=== PATIENT | female | born 1935 | race Caucasian/White ===

== ENCOUNTER 2016-09-09 14:12 | Inpatient (IN) | payer OTHER, MEDICARE ==
[~2016-09-09] VITALS: Ht 177.8 cm; Wt 155.2 kg
[~2016-09-09 14:12] MED LIST: ADVAIR 100/501 DISK IH; ADVAIR 250/501 DISK IH; ADVAIR HFA120 INHAL1 IH; ADVAIR HFA120 INHALA IH; AMLODIPINE BESYL5 MG PO; ASPIRIN81 M2 PO; BACTRIM,SEPT1 TABLET PO; BRILINTA90 MG PO; CATAPRES0.1 MG PO; CEFADROXIL1 GM PO; CHILD ASPIRIN81 M1 PO; CLONIDINE HCL0.1 MG PO; CLONIDINE HCL0.3 MG PO; DAILY VALUE1 EACH PO; ELAVIL25 MG PO; FUROSEMIDE40 MG PO; GLIPIZIDE5 MG PO; GLUCOTROL5 MG PO; HUMALOG100 UNIT/1 SC; HUMULIN N100 UNITS/ SC; HUMULIN R100 UNITS/ SC; HYDROCHLOROTHIA25 MG PO; IMDUR60 MG PO; INCRUSE ELLI62.5 MCG IH; ISOSORBIDE MONO60 MG PO; JANUVIA100 MG PO; JANUVIA25 M1 PO; KETOCONAZOLE60 GM TP; KLOR-CON 88 MEQ PO; LANTUS 3 M100 UNITS1 SC; LASIX20 MG PO; LASIX40 MG PO; LEVOTHYROXINE50 MCG PO; LISINOPRIL10 MG PO; LOPRESSOR100 M1 PO; LOSARTAN POTAS100 MG PO; LUNESTA1 MG PO; MUCINEX1200 MG PO; NITROGLYCERIN0.4 MG SL; NOVOLIN N100 UNITS/ SC; NOVOLOG 10100 UNITS/ SC; NOVOLOG PE100 UNITS/ SC; PEN-VEE K,VEET500 MG PO; PERCOCET 5/31 TABLET PO; PRAVACHOL40 MG PO; PRAVASTATIN SOD40 MG PO; PRAVASTATIN SOD80 MG PO; PREDNISONE10 MG PO; PROVENTIL,2.5 MG/3 M IH; REQUIP3 MG PO; SANTYL30 GM TP; SILVADENE20 GM TP; SPIRIVA RESPIMAT4 GM IH; SPIRIVA1 INHALATI IH; ST. JOSEPH ASPI81 MG PO; SYNTHROID50 MCG PO; TRAMADOL HCL50 MG PO; TYLENOL ARTHRI650 MG PO; TYLENOL REGULA325 MG PO; VANCOMYCIN HCL1 GM IV; VENTOLIN HFA18 GM IH; VESICARE10 MG PO; VITAMIN B-6100 MG PO; XANAX0.25 MG PO; ZITHROMAX500 MG PO
[2016-09-09 15:04] LABS: HEMATOCRIT 38.4 % (36.0-46.0); MCH 32.1 PG (29.0-34.0); MCHC 32.6 G/DL (30.0-36.0); MCV 98.5 FL (83-99); MEAN PLAT.VOLUME 10.5 uM^3 (9.5-12.4); PLATELET COUNT 137 K/uL (156-360); RBC DIS.WIDTH-CV 12.6 % (11.8-14.6); RBC DIS.WIDTH-SD 45.4 % (39-53); WHITE BLOOD COUNT 9.1 K/uL (4.1-10.2)
[2016-09-09 15:12] LABS: CHLORIDE 100 mEq/L (99-109); POTASSIUM 4.7 mEq/L (3.7-5.4); SODIUM 136 mEq/L (136-147)
[2016-09-09 15:14] LABS: GLUCOSE 377 mg/dL (70-99)
[2016-09-09 15:15] LABS: ANION GAP 12 MEQ/L (2-14)
[2016-09-09 15:18] LABS: GFR ESTIMATE (CALCULATED) 51 mL/min/
[2016-09-09 15:19] LABS: UREA NITROGEN (BUN) 24 mg/dL (9-23)
[2016-09-09 15:25] LABS: TROP-I INTERPRETATION NEGATIVE; TROPONIN-I 0.05 ng/mL (0.0-0.30)
[2016-09-09] MEDS ORDERED: DUONEB 2.5-0.5 M3 ML AEROSOL (16:43)
[2016-09-09] MEDS ORDERED: PRAVACHOL40 MG PO (16:43)
[2016-09-09] MEDS ORDERED: LO-DOSE ASPIRIN81 M2 PO (16:47)
[2016-09-09] MEDS ORDERED: KLOR-CON 88 MEQ PO (16:48)
[2016-09-09] MEDS ORDERED: ADVAIR 250/501 DISK IH (16:49)
[2016-09-09] MEDS ORDERED: FUROSEMIDE40 MG PO (16:49)
[2016-09-09] MEDS ORDERED: HUMULIN N100 UNITS/ SC ×2 (16:50→16:51)
[2016-09-09] MEDS ORDERED: HUMALOG100 UNIT/1 SC (16:50)
[2016-09-09] MEDS ORDERED: SYNTHROID50 MCG PO (16:51)
[2016-09-09] MEDS ORDERED: VITAMIN B-6100 MG PO (16:52)
[2016-09-09] MEDS ORDERED: AMLODIPINE BESYL5 MG PO (16:53)
[2016-09-09] MEDS ORDERED: CLOPIDOGREL75 MG PO (16:53)
[2016-09-09 18:16] LABS: ADD MIUA? YES; BILIRUBIN NEGATIVE; BLOOD SMALL; COLOR YELLOW ((YELLOW)); GLUCOSE (STRIP) >=500; KETONES 20; LEUKOCYTES TRACE; NITRITE NEGATIVE; PROTEIN (STRIP) 100; SPECIFIC GRAVITY 1.028 (1.000-1.030); UROBILINOGEN 0.2 MG/DL (0.2-1.0)
[2016-09-09 18:30] LABS: TROP-I INTERPRETATION NEGATIVE; TROPONIN-I 0.22 ng/mL (0.0-0.30)
[2016-09-09 18:42] LABS: BACTERIA 2+ /HPF; CASTS PRESENT /LPF; CRYSTALS NONE SEEN; EPITHELIAL CELLS 2+ /HPF; FINE GRANULAR CASTS RARE /LPF; HYALINE CASTS 0-5 /LPF; MUCUS RARE /LPF; RED BLOOD CELLS 0-5 /HPF (0-5); UCUL ADDED? NO; WHITE BLOOD CELLS 0-5 /HPF (0-5)
[2016-09-09 19:40] VITALS: BP 158/72
[2016-09-09 19:43] VITALS: BP 158/72
[2016-09-09 22:50] LABS: POINT-OF-CARE METER ID UU13113831
[2016-09-09 23:05] LABS: METH RESISTANT S AUREUS PCR POSITIVE (NEGATIVE)
[2016-09-09 23:07] LABS: PROBE CHECK PASS
[2016-09-10] VITALS (8 sets, daily range): BP systolic 122–198; BP diastolic 62–81
[2016-09-10 01:06] LABS: TROPONIN-I 0.64 ng/mL (0.0-0.30)
[2016-09-10 01:07] LABS: TROP-I INTERPRETATION POSITIVE
[2016-09-10 02:05] LABS: INTER. NORMALIZED RATIO 1.1; PROTHROMBIN TIME 11.3 (9.2-11.2); PTT 29.4 (25-32)
[2016-09-10 02:10] LABS: BASE EXCESS 4.5 mEq/L (-3 to +3); BICARBONATE 29.8 mEq/L (22-26); CARBOXY HGB 1.8 % (0-5); COMMENTS - BLOOD GASES C+; DEVICE NC; METHEMOGLOBIN 1.4 % (0-1.5); O2 FLOW 5 L/MIN; PCO2 46 mm Hg (35-45); PO2 74 mm Hg (80-100); SITE LR; TOTAL RESP RATE 28 resp/min; pH 7.42 (7.35-7.45)
[2016-09-10 03:41] LABS: EOSINOPHIL (%) 0 % (0-5); HEMATOCRIT 41.7 % (36.0-46.0); IMMATURE GRANULOCYTE (%) 0.8 % (0.0-0.7); IMMATURE GRANULOCYTE COUNT 0.1 K/uL; INSTRUMENT ABS NEUTROPHIL CT 6.1 K/uL; LYMPHOCYTE COUNT 0.2 K/uL (1.0-2.8); MCH 32.3 PG (29.0-34.0); MCHC 33.3 G/DL (30.0-36.0); MEAN PLAT.VOLUME 10.6 uM^3 (9.5-12.4); MONOCYTE (%) 4.8 % (3-12); MONOCYTE COUNT 0.3 K/uL (0-0.8); NEUTROPHIL (%) 90.9 % (45-76); NEUTROPHIL COUNT 6.1 K/uL (1.8-6.4); PLATELET COUNT 151 K/uL (156-360); RBC DIS.WIDTH-CV 12.6 % (11.8-14.6); WHITE BLOOD COUNT 6.7 K/uL (4.1-10.2)
[2016-09-10 03:47] LABS: CHLORIDE 97 mEq/L (99-109); POTASSIUM 3.9 mEq/L (3.7-5.4); SODIUM 136 mEq/L (136-147)
[2016-09-10 03:48] LABS: MAGNESIUM 1.8 mg/dL (1.3-2.7)
[2016-09-10 03:51] LABS: ANION GAP 11 MEQ/L (2-14); TOTAL BILIRUBIN 1.1 mg/dL (0.0-1.0)
[2016-09-10 03:53] LABS: ALKALINE PHOSPHATASE 86 IU/L (3-129); GFR ESTIMATE (CALCULATED) 42 mL/min/
[2016-09-10 03:54] LABS: UREA NITROGEN (BUN) 27 mg/dL (9-23)
[2016-09-10 04:00] LABS: GLUCOSE 404 mg/dL (70-99)
[2016-09-10 05:38] LABS: ERTH.SED.RATE 85 MM/HR (0-30)
[2016-09-10 05:56] LABS: MCH 32.7 PG (29.0-34.0); MCHC 33.4 G/DL (30.0-36.0); MCV 97.9 FL (83-99); MEAN PLAT.VOLUME 10.9 uM^3 (9.5-12.4); PLATELET COUNT 136 K/uL (156-360); RBC DIS.WIDTH-CV 12.8 % (11.8-14.6); RBC DIS.WIDTH-SD 45.6 % (39-53); RED BLOOD COUNT 3.88 M/uL (3.80-5.20)
[2016-09-10 06:18] LABS: TROP-I INTERPRETATION POSITIVE; TROPONIN-I 0.69 ng/mL (0.0-0.30)
[2016-09-10 06:49] LABS: ANION GAP 10 MEQ/L (2-14); CHLORIDE 96 MEQ/L (99-109); GFR ESTIMATE (CALCULATED) 46 mL/min/; GLUCOSE 374 mg/dL (70-99); POTASSIUM 3.7 MEQ/L (3.7-5.4); SAMPLE HEMOLYSIS CHECK 0; SAMPLE ICTERIC CHECK 0; SAMPLE LIPEMIA CHECK 0; SODIUM 136 MEQ/L (136-147); UREA NITROGEN (BUN) 26 mg/dL (9-23)
[2016-09-10 07:37] LABS: POINT-OF-CARE METER ID UU14174216
[2016-09-10 11:50] LABS: POINT-OF-CARE METER ID UU14174216
[2016-09-10 13:27] LABS: TROP-I INTERPRETATION POSITIVE; TROPONIN-I 0.83 ng/mL (0.0-0.30)
[2016-09-10 15:50] LABS: POINT-OF-CARE METER ID UU14174216
[2016-09-10 21:23] LABS: POINT-OF-CARE METER ID UU13113781
[2016-09-11 07:53] LABS: POINT-OF-CARE METER ID UU13113698
[2016-09-11 08:53] VITALS: BP 140/76
[2016-09-11 12:31] LABS: POINT-OF-CARE METER ID UU13113698
[2016-09-11 16:00] VITALS: BP 144/77
[2016-09-11 16:18] LABS: POINT-OF-CARE METER ID UU13113781
[2016-09-11 21:01] LABS: POINT-OF-CARE METER ID UU13113781
[2016-09-11 21:40] VITALS: BP 172/84
[2016-09-12 01:26] VITALS: BP 155/66
[2016-09-12 04:54] VITALS: BP 173/80
[2016-09-12 05:43] LABS: HEMATOCRIT 35.4 % (36.0-46.0); MCH 32.9 PG (29.0-34.0); MCHC 33.1 G/DL (30.0-36.0); MCV 99.4 FL (83-99); MEAN PLAT.VOLUME 10.7 uM^3 (9.5-12.4); PLATELET COUNT 160 K/uL (156-360); RBC DIS.WIDTH-CV 12.8 % (11.8-14.6); RBC DIS.WIDTH-SD 46.4 % (39-53); RED BLOOD COUNT 3.56 M/uL (3.80-5.20); WHITE BLOOD COUNT 6.2 K/uL (4.1-10.2)
[2016-09-12 06:24] LABS: ANION GAP 8 MEQ/L (2-14); CHLORIDE 100 MEQ/L (99-109); GFR ESTIMATE (CALCULATED) 51 mL/min/; GLUCOSE 187 mg/dL (70-99); POTASSIUM 4.3 MEQ/L (3.7-5.4); SAMPLE HEMOLYSIS CHECK 0; SAMPLE ICTERIC CHECK 0; SAMPLE LIPEMIA CHECK 0; SODIUM 137 MEQ/L (136-147); UREA NITROGEN (BUN) 36 mg/dL (9-23)
[2016-09-12 07:58] LABS: POINT-OF-CARE METER ID UU14174216
[2016-09-12 08:42] VITALS: BP 200/95
[2016-09-12 11:11] LABS: POINT-OF-CARE METER ID UU14174216
[2016-09-12 12:10] VITALS: BP 122/62
[2016-09-12 16:00] VITALS: BP 140/80
[2016-09-12 19:45] VITALS: BP 132/78
[2016-09-13 01:00] VITALS: BP 128/56
[2016-09-13 05:47] LABS: HEMATOCRIT 37.3 % (36.0-46.0); MCH 32.7 PG (29.0-34.0); MCHC 33.2 G/DL (30.0-36.0); MCV 98.4 FL (83-99); MEAN PLAT.VOLUME 10.3 uM^3 (9.5-12.4); PLATELET COUNT 175 K/uL (156-360); RBC DIS.WIDTH-SD 46.5 % (39-53); RED BLOOD COUNT 3.79 M/uL (3.80-5.20)
[2016-09-13 06:20] LABS: ANION GAP 10 MEQ/L (2-14); CHLORIDE 105 MEQ/L (99-109); GFR ESTIMATE (CALCULATED) 57 mL/min/; POTASSIUM 4.3 MEQ/L (3.7-5.4); SAMPLE HEMOLYSIS CHECK 0; SAMPLE ICTERIC CHECK 0; SAMPLE LIPEMIA CHECK 0; SODIUM 140 MEQ/L (136-147); UREA NITROGEN (BUN) 34 mg/dL (9-23)
[2016-09-13 06:26] LABS: GLUCOSE 106 mg/dL (70-99)
[2016-09-13 06:32] LABS: POINT-OF-CARE METER ID UU14174216
[2016-09-13 06:37] VITALS: BP 144/68
[2016-09-13 08:10] VITALS: BP 178/79
[2016-09-13 11:19] LABS: POINT-OF-CARE METER ID UU13113698
[2016-09-13 11:53] VITALS: BP 132/62
[2016-09-13 16:02] LABS: POINT-OF-CARE METER ID UU13113698
[2016-09-13 16:46] VITALS: BP 193/88
[2016-09-13 17:36] LABS: ADD MIUA? YES; BILIRUBIN NEGATIVE; BLOOD SMALL; COLOR YELLOW ((YELLOW)); GLUCOSE (STRIP) NEGATIVE; KETONES NEGATIVE; LEUKOCYTES NEGATIVE; NITRITE NEGATIVE; PROTEIN (STRIP) 30; SPECIFIC GRAVITY 1.017 (1.000-1.030)
[2016-09-13 18:03] LABS: EPITHELIAL CELLS 1+ /HPF; RED BLOOD CELLS 0-5 /HPF (0-5); WHITE BLOOD CELLS 0-5 /HPF (0-5)
[2016-09-13 18:04] LABS: BACTERIA 1+ /HPF; MUCUS NONE SEEN /LPF; UCUL ADDED? NO
[2016-09-13 20:02] VITALS: BP 111/58
[2016-09-13 21:31] LABS: POINT-OF-CARE METER ID UU13113781
[2016-09-14 01:00] VITALS: BP 125/60
[2016-09-14 03:30] VITALS: BP 130/60
[2016-09-14 07:33] VITALS: BP 119/59
[2016-09-14 08:07] LABS: POINT-OF-CARE METER ID UU13113781
[2016-09-14 11:08] LABS: POINT-OF-CARE METER ID UU13113781
[2016-09-14 11:51] VITALS: BP 125/56
[2016-09-14 15:54] LABS: POINT-OF-CARE METER ID UU13113781
[2016-09-14 16:11] VITALS: BP 122/58
[2016-09-14 20:45] VITALS: BP 159/69
[2016-09-15 00:25] VITALS: BP 143/85
[2016-09-15 04:45] VITALS: BP 163/72
[2016-09-15 07:52] LABS: HEMATOCRIT 35.5 % (36.0-46.0); MCH 32.5 PG (29.0-34.0); MCHC 32.4 G/DL (30.0-36.0); MCV 100.3 FL (83-99); MEAN PLAT.VOLUME 10.8 uM^3 (9.5-12.4); PLATELET COUNT 201 K/uL (156-360); RBC DIS.WIDTH-SD 47.9 % (39-53); RED BLOOD COUNT 3.54 M/uL (3.80-5.20); WHITE BLOOD COUNT 11.5 K/uL (4.1-10.2)
[2016-09-15 08:47] LABS: POINT-OF-CARE USER ID NUTSLF44
[2016-09-15 09:20] VITALS: BP 185/77
[2016-09-15 13:24] VITALS: BP 140/80
[2016-09-15 13:45] LABS: POINT-OF-CARE METER ID UU13113781; POINT-OF-CARE USER ID NUTSLF44
[2016-09-15] MEDS ORDERED: LOPRESSOR50 MG PO (14:42)
[2016-09-15 16:17] LABS: POINT-OF-CARE METER ID UU13113698
[2016-09-15 16:40] VITALS: BP 147/65
== END 2016-09-15 17:28 | DRG 280 ==
LOC: EME → EDSEX 14:12 → EME 14:12 → EDBD 14:12 → 5WEST 17:13 → EDOF 17:13 → 5WEST 19:24 → 4EAST 09-10 01:18 → 5WEST 09-10 01:18 → 4EAST 09-10 03:00
PROVIDERS: Emergency Medicine; Hospitalist; Internal Medicine; Physician Assistant Medical
DX: I21.4 Non-ST elevation (NSTEMI) myocardial infarction (principal); E11.628 Type 2 diabetes mellitus with other skin complications; L03.116 Cellulitis of left lower limb; R78.81 Bacteremia; B95.62 Methicillin resistant Staphylococcus aureus infection as the cause of diseases classified elsewhere; E11.621 Type 2 diabetes mellitus with foot ulcer; L97.429 Non-pressure chronic ulcer of left heel and midfoot with unspecified severity; E11.65 Type 2 diabetes mellitus with hyperglycemia; I13.0 Hypertensive heart and chronic kidney disease with heart failure and stage 1 through stage 4 chronic kidney disease, or unspecified chronic kidney disease; I50.43 Acute on chronic combined systolic (congestive) and diastolic (congestive) heart failure; J96.01 Acute respiratory failure with hypoxia; J96.02 Acute respiratory failure with hypercapnia; E87.4 Mixed disorder of acid-base balance; L89.42 Pressure ulcer of contiguous site of back, buttock and hip, stage 2; I83.228 Varicose veins of left lower extremity with both ulcer of other part of lower extremity and inflammation; N18.9 Chronic kidney disease, unspecified; E11.22 Type 2 diabetes mellitus with diabetic chronic kidney disease; I27.2 Other secondary pulmonary hypertension; I25.119 Atherosclerotic heart disease of native coronary artery with unspecified angina pectoris; I25.5 Ischemic cardiomyopathy; E11.610 Type 2 diabetes mellitus with diabetic neuropathic arthropathy; E78.5 Hyperlipidemia, unspecified; E66.01 Morbid (severe) obesity due to excess calories; Z68.42 Body mass index [BMI] 45.0-49.9, adult; J44.9 Chronic obstructive pulmonary disease, unspecified; G47.33 Obstructive sleep apnea (adult) (pediatric); Z99.81 Dependence on supplemental oxygen; I89.0 Lymphedema, not elsewhere classified; I35.0 Nonrheumatic aortic (valve) stenosis; E03.9 Hypothyroidism, unspecified; G25.81 Restless legs syndrome; I25.2 Old myocardial infarction; K21.9 Gastro-esophageal reflux disease without esophagitis; G89.29 Other chronic pain; M54.5 Low back pain; R32 Unspecified urinary incontinence; Z95.5 Presence of coronary angioplasty implant and graft; Z87.891 Personal history of nicotine dependence; Z99.3 Dependence on wheelchair; Z79.4 Long term (current) use of insulin; Z79.82 Long term (current) use of aspirin; Z79.02 Long term (current) use of antithrombotics/antiplatelets
CPT/HCPCS: 36600; 71010; 71275; 73720; 76937; 80048; 80053; 80202; 81003; 82803; 82948; 83605; 83735; 83880; 84484; 85025; 85027; 85610; 85651; 85730; 87040; 87070; 87075; 87077; 87147; 87186; 87205; 87641; 87801; 93005; 93306; 93970; 94010; 94640; 94640 76; 94660; 94799; 97530 GP; 99202; 99281; 99284; A6212; G0378; J0692; J1644; J1815; J1940; J2270; J2543; J3370; J7040; J7050

== ENCOUNTER 2016-10-13 12:25 | Observation (INO) | payer OTHER, MEDICARE ==
[~2016-10-13] VITALS: Ht 180.3 cm; Wt 143.7 kg
[~2016-10-13 12:25] MED LIST changes: +CLOPIDOGREL75 MG PO; +DUONEB 2.5-0.5 M3 ML AEROSOL; +LO-DOSE ASPIRIN81 M2 PO; +LOPRESSOR50 MG PO
[2016-10-13 13:08] LABS: EOSINOPHIL (%) 0.3 % (0-5); HEMATOCRIT 38.2 % (36.0-46.0); IMMATURE GRANULOCYTE (%) 0.3 % (0.0-0.7); INSTRUMENT ABS NEUTROPHIL CT 11.5 K/uL; LYMPHOCYTE COUNT 0.5 K/uL (1.0-2.8); MCHC 33.2 G/DL (30.0-36.0); MCV 96.2 FL (83-99); MONOCYTE (%) 5.3 % (3-12); MONOCYTE COUNT 0.7 K/uL (0-0.8); NEUTROPHIL (%) 90.5 % (45-76); NEUTROPHIL COUNT 11.5 K/uL (1.8-6.4); PLATELET COUNT 176 K/uL (156-360); RBC DIS.WIDTH-CV 12.5 % (11.8-14.6); RBC DIS.WIDTH-SD 44.6 % (39-53); RED BLOOD COUNT 3.97 M/uL (3.80-5.20); WHITE BLOOD COUNT 12.7 K/uL (4.1-10.2)
[2016-10-13 13:15] LABS: CHLORIDE 98 mEq/L (99-109); SODIUM 139 mEq/L (136-147)
[2016-10-13 13:17] LABS: GLUCOSE 323 mg/dL (70-99)
[2016-10-13 13:18] LABS: ANION GAP 11 MEQ/L (2-14)
[2016-10-13 13:21] LABS: GFR ESTIMATE (CALCULATED) 46 mL/min/
[2016-10-13 13:22] LABS: UREA NITROGEN (BUN) 29 mg/dL (9-23)
[2016-10-13 13:24] LABS: INTER. NORMALIZED RATIO 1.1; PROTHROMBIN TIME 11.2 (9.2-11.2); PTT 24.4 (25-32)
[2016-10-13 13:28] LABS: TROP-I INTERPRETATION NEGATIVE; TROPONIN-I 0.03 ng/mL (0.0-0.30)
[2016-10-13] MEDS ORDERED: IMDUR30 MG PO (16:21)
[2016-10-13] MEDS ORDERED: MELATIN3 MG PO (16:22)
[2016-10-13] MEDS ORDERED: METOLAZONE2.5 MG PO (16:23)
[2016-10-13] MEDS ORDERED: METOPROLOL TART75 MG PO (16:24)
[2016-10-13] MEDS ORDERED: POTASSIUM CHLO20 ME2 PO (16:25)
[2016-10-13] MEDS ORDERED: [UNRECOGNIZED DRUG - CODE] PO (16:26)
[2016-10-13] MEDS ORDERED: TYLENOL EXTRA500 MG PO (16:26)
[2016-10-13] MEDS ORDERED: ACETAMINOPHEN325 M1 PO (16:28)
[2016-10-13] MEDS ORDERED: DULCOLAX10 MG PR (16:28)
[2016-10-13] MEDS ORDERED: MILK OF MAGN PO (16:29)
[2016-10-13] MEDS ORDERED: MIRALAX17 GM PO (16:29)
[2016-10-13] MEDS ORDERED: OXYCODONE HCL5 MG PO (16:30)
[2016-10-13] MEDS ORDERED: NITROSTAT0.4 MG SL (16:30)
[2016-10-13] MEDS ORDERED: NYAMYC60 GM TP (18:11)
[2016-10-13 18:17] LABS: POINT-OF-CARE METER ID UU13113831
[2016-10-13 18:34] VITALS: BP 148/80
[2016-10-13 19:21] LABS: TROP-I INTERPRETATION NEGATIVE; TROPONIN-I 0.05 ng/mL (0.0-0.30)
[2016-10-13 19:53] VITALS: BP 172/80
[2016-10-13 22:10] LABS: POINT-OF-CARE METER ID UU13113831
[2016-10-13 23:45] VITALS: BP 147/70
[2016-10-14 01:56] LABS: TROP-I INTERPRETATION NEGATIVE; TROPONIN-I 0.03 ng/mL (0.0-0.30)
[2016-10-14 04:01] VITALS: BP 149/68
[2016-10-14 08:17] LABS: POINT-OF-CARE METER ID UU13113700
[2016-10-14 08:59] VITALS: BP 167/70
[2016-10-14 11:41] VITALS: BP 120/63
[2016-10-14 12:11] LABS: POINT-OF-CARE METER ID UU13113700
== END 2016-10-14 14:53 ==
LOC: EME 12:25 → EDOF 16:25 → 5WEST 16:25
PROVIDERS: Emergency Medicine; Internal Medicine
DX: R07.89 Other chest pain (principal); D72.829 Elevated white blood cell count, unspecified; R06.02 Shortness of breath; Z86.19 Personal history of other infectious and parasitic diseases; E66.01 Morbid (severe) obesity due to excess calories; Z68.41 Body mass index [BMI] 40.0-44.9, adult; G47.33 Obstructive sleep apnea (adult) (pediatric); E03.9 Hypothyroidism, unspecified; K21.9 Gastro-esophageal reflux disease without esophagitis; I10 Essential (primary) hypertension; Z79.4 Long term (current) use of insulin; E11.9 Type 2 diabetes mellitus without complications; Z86.31 Personal history of diabetic foot ulcer; I89.0 Lymphedema, not elsewhere classified; I25.2 Old myocardial infarction; Z86.14 Personal history of Methicillin resistant Staphylococcus aureus infection; I25.10 Atherosclerotic heart disease of native coronary artery without angina pectoris; Z95.5 Presence of coronary angioplasty implant and graft; I25.5 Ischemic cardiomyopathy; E78.5 Hyperlipidemia, unspecified; J44.9 Chronic obstructive pulmonary disease, unspecified; Z87.891 Personal history of nicotine dependence; Z88.8 Allergy status to other drugs, medicaments and biological substances
CPT/HCPCS: 71010; 80048 91; 82948; 84484; 85025 91; 85610; 85730; 93005; 93970; 94640; 94640 76; 94799; 99202; 99281; 99285; G0378; J1815; J2270

== ENCOUNTER 2016-10-20 17:14 | Inpatient (IN) | payer OTHER, MEDICARE ==
[~2016-10-20] VITALS: Ht 177.8 cm; Wt 120.1 kg
[~2016-10-20 17:14] MED LIST changes: +ACETAMINOPHEN325 M1 PO; +DULCOLAX10 MG PR; +IMDUR30 MG PO; +MELATIN3 MG PO; +METOLAZONE2.5 MG PO; +METOPROLOL TART75 MG PO; +MILK OF MAGN PO; +MIRALAX17 GM PO; +NITROSTAT0.4 MG SL; +NYAMYC60 GM TP; +OXYCODONE HCL5 MG PO; +POTASSIUM CHLO20 ME2 PO; +TYLENOL EXTRA500 MG PO; +[UNRECOGNIZED DRUG - CODE] PO
[2016-10-20 18:21] LABS: HEMATOCRIT 33.8 % (36.0-46.0); MCH 31.5 PG (29.0-34.0); MCHC 33.1 G/DL (30.0-36.0); MCV 94.9 FL (83-99); MEAN PLAT.VOLUME 10.6 uM^3 (9.5-12.4); PLATELET COUNT 188 K/uL (156-360); RBC DIS.WIDTH-CV 13.4 % (11.8-14.6); RED BLOOD COUNT 3.56 M/uL (3.80-5.20); WHITE BLOOD COUNT 15.6 K/uL (4.1-10.2)
[2016-10-20 18:45] LABS: TROP-I INTERPRETATION INDETERMINATE; TROPONIN-I 0.37 ng/mL (0.0-0.30)
[2016-10-20 18:56] LABS: CHLORIDE 94 mEq/L (99-109); SODIUM 133 mEq/L (136-147)
[2016-10-20 18:57] LABS: POTASSIUM 4.4 mEq/L (3.7-5.4)
[2016-10-20 18:59] LABS: ANION GAP 11 MEQ/L (2-14)
[2016-10-20 19:00] LABS: TOTAL BILIRUBIN 0.6 mg/dL (0.0-1.0)
[2016-10-20 19:01] LABS: ALKALINE PHOSPHATASE 138 IU/L (3-129)
[2016-10-20 19:02] LABS: GFR ESTIMATE (CALCULATED) 42 mL/min/
[2016-10-20 19:03] LABS: UREA NITROGEN (BUN) 48 mg/dL (9-23)
[2016-10-20 19:08] LABS: GLUCOSE 112 mg/dL (70-99)
[2016-10-20 19:20] LABS: ADD MIUA? YES; BILIRUBIN NEGATIVE; BLOOD MODERATE; COLOR YELLOW ((YELLOW)); GLUCOSE (STRIP) NEGATIVE; KETONES NEGATIVE; LEUKOCYTES LARGE; NITRITE NEGATIVE; PROTEIN (STRIP) NEGATIVE; SPECIFIC GRAVITY 1.013 (1.000-1.030); UROBILINOGEN 0.2 MG/DL (0.2-1.0)
[2016-10-20 19:20] LABS: ABS NEUTROPHIL COUNT 14.6; ANISOCYTOSIS 2+; BAND NEUTROPHILS 24.5 % (0-8.0); EOSINOPHIL ABS CT 0; HYPOCHROMASIA 1+; LYMPHOCYTES 0.9 % (15.0-45.0); MACROCYTES 1+; MICROCYTOSIS 1+; MYELOCYTES 0.9 %; PLAT.SUFFICIENCY ADEQUATE; POIKILOCYTOSIS 1+; SEG.NEUTROPHILS 69.3 % (46.0-76.0); SPHEROCYTES 1+
[2016-10-20 19:37] LABS: CASTS NONE SEEN /LPF; EPITHELIAL CELLS 4+ /HPF; MUCUS NONE SEEN /LPF
[2016-10-20 19:38] LABS: BACTERIA 3+ /HPF; RED BLOOD CELLS RARE /HPF (0-5); UCUL ADDED? YES; WHITE BLOOD CELLS TNTC /HPF (0-5)
[2016-10-20 19:50] LABS: POINT-OF-CARE METER ID UU14100415
[2016-10-20 19:52] LABS: SAMPLE HEMOLYSIS CHECK 0; SAMPLE ICTERIC CHECK 0; SAMPLE LIPEMIA CHECK 0
[2016-10-20 19:53] LABS: LIPASE < 1 U/L (1.0-51.0)
[2016-10-20] MEDS ORDERED: LEVAQUIN500 MG PO (21:24)
[2016-10-20 22:22] LABS: BASE EXCESS 4.7 mEq/L (-3 to +3); BICARBONATE 29.2 mEq/L (22-26); CARBOXY HGB 1.9 % (0-5); METHEMOGLOBIN 1.4 % (0-1.5); PCO2 42 mm Hg (35-45); PO2 58 mm Hg (80-100); pH 7.45 (7.35-7.45)
[2016-10-20 22:23] LABS: DEVICE NC; O2 FLOW 6 L/MIN; SITE RR; TOTAL RESP RATE 24 resp/min
[2016-10-21 00:17] LABS: POINT-OF-CARE METER ID UU14100415
[2016-10-21 01:05] LABS: TROP-I INTERPRETATION INDETERMINATE; TROPONIN-I 0.35 ng/mL (0.0-0.30)
[2016-10-21 01:44] LABS: INTER. NORMALIZED RATIO 1.5; PROTHROMBIN TIME 16.4 SEC (10.2-12.9)
[2016-10-21 01:46] LABS: PTT 26.4 SEC (25-37)
[2016-10-21 06:23] LABS: HEMATOCRIT 32.7 % (36.0-46.0); MCHC 33.3 G/DL (30.0-36.0); MCV 95.9 FL (83-99); MEAN PLAT.VOLUME 10.2 uM^3 (9.5-12.4); PLATELET COUNT 208 K/uL (156-360); RBC DIS.WIDTH-CV 13.6 % (11.8-14.6); RBC DIS.WIDTH-SD 48.8 % (39-53); RED BLOOD COUNT 3.41 M/uL (3.80-5.20); WHITE BLOOD COUNT 20.3 K/uL (4.1-10.2)
[2016-10-21 06:35] LABS: CHLORIDE 100 mEq/L (99-109); POTASSIUM 3.8 mEq/L (3.7-5.4); SODIUM 136 mEq/L (136-147)
[2016-10-21 06:36] LABS: GLUCOSE 103 mg/dL (70-99)
[2016-10-21 06:38] LABS: ANION GAP 9 MEQ/L (2-14)
[2016-10-21 06:40] LABS: GFR ESTIMATE (CALCULATED) 46 mL/min/
[2016-10-21 06:41] LABS: UREA NITROGEN (BUN) 42 mg/dL (9-23)
[2016-10-21 06:45] LABS: TROP-I INTERPRETATION INDETERMINATE; TROPONIN-I 0.34 ng/mL (0.0-0.30)
[2016-10-21 11:55] LABS: POINT-OF-CARE METER ID UU14100415
[2016-10-21 14:30] VITALS: BP 148/64
[2016-10-21 14:53] VITALS: BP 148/64
[2016-10-21 15:01] LABS: POINT-OF-CARE METER ID UU13113781
[2016-10-21 17:29] LABS: POINT-OF-CARE METER ID UU13113781
[2016-10-21 19:09] VITALS: BP 175/80
[2016-10-21 22:31] LABS: POINT-OF-CARE METER ID UU13113698
[2016-10-21 23:12] VITALS: BP 180/75
[2016-10-22 00:31] LABS: POINT-OF-CARE METER ID UU13113698
[2016-10-22 03:31] VITALS: BP 151/70
[2016-10-22 06:45] LABS: POINT-OF-CARE METER ID UU13113698
[2016-10-22 07:47] LABS: HEMATOCRIT 34.2 % (36.0-46.0); MCH 30.7 PG (29.0-34.0); MCHC 31.6 G/DL (30.0-36.0); MCV 97.2 FL (83-99); MEAN PLAT.VOLUME 10.9 uM^3 (9.5-12.4); PLATELET COUNT 232 K/uL (156-360); RBC DIS.WIDTH-CV 14.1 % (11.8-14.6); RBC DIS.WIDTH-SD 50.4 % (39-53); RED BLOOD COUNT 3.52 M/uL (3.80-5.20); WHITE BLOOD COUNT 22.1 K/uL (4.1-10.2)
[2016-10-22 08:09] LABS: ANION GAP 13 MEQ/L (2-14); CHLORIDE 98 MEQ/L (99-109); GFR ESTIMATE (CALCULATED) 51 mL/min/; POTASSIUM 3.5 MEQ/L (3.7-5.4); SAMPLE HEMOLYSIS CHECK 0; SAMPLE ICTERIC CHECK 0; SAMPLE LIPEMIA CHECK 0; SODIUM 141 MEQ/L (136-147); UREA NITROGEN (BUN) 42 mg/dL (9-23)
[2016-10-22 08:15] LABS: GLUCOSE 207 mg/dL (70-99); TROP-I INTERPRETATION INDETERMINATE; TROPONIN-I 0.36 ng/mL (0.0-0.30)
[2016-10-22 09:09] VITALS: BP 151/54
[2016-10-22 11:33] LABS: POINT-OF-CARE METER ID UU13113781
[2016-10-22 12:01] VITALS: BP 103/66
[2016-10-22 16:27] LABS: POINT-OF-CARE METER ID UU13113781
[2016-10-22 16:46] VITALS: BP 130/60
[2016-10-22 19:30] VITALS: BP 180/74
[2016-10-22 23:00] VITALS: BP 165/71
[2016-10-23 03:30] VITALS: BP 146/65
[2016-10-23 06:33] LABS: HEMATOCRIT 33.8 % (36.0-46.0); MCH 31.2 PG (29.0-34.0); MCHC 32.5 G/DL (30.0-36.0); MCV 95.8 FL (83-99); MEAN PLAT.VOLUME 10.4 uM^3 (9.5-12.4); PLATELET COUNT 278 K/uL (156-360); RBC DIS.WIDTH-SD 49.2 % (39-53); RED BLOOD COUNT 3.53 M/uL (3.80-5.20); WHITE BLOOD COUNT 24.2 K/uL (4.1-10.2)
[2016-10-23 07:01] LABS: TROP-I INTERPRETATION INDETERMINATE; TROPONIN-I 0.34 ng/mL (0.0-0.30)
[2016-10-23 07:16] LABS: ANION GAP 12 MEQ/L (2-14); CHLORIDE 95 MEQ/L (99-109); GFR ESTIMATE (CALCULATED) 51 mL/min/; POTASSIUM 3.2 MEQ/L (3.7-5.4); SAMPLE HEMOLYSIS CHECK 0; SAMPLE ICTERIC CHECK 0; SAMPLE LIPEMIA CHECK 0; SODIUM 134 MEQ/L (136-147); UREA NITROGEN (BUN) 54 mg/dL (9-23)
[2016-10-23 07:31] LABS: GLUCOSE 467 mg/dL (70-99)
[2016-10-23 08:42] VITALS: BP 160/78
[2016-10-23 08:52] LABS: BASE EXCESS 6.4 mEq/L (-3 to +3); CARBOXY HGB 1.8 % (0-5); METHEMOGLOBIN 2.2 % (0-1.5); pH 7.37 (7.35-7.45)
[2016-10-23 08:53] LABS: COMMENTS - BLOOD GASES A+C+; DEVICE HFLNC; O2 FLOW 15 L/MIN; PCO2 57 mm Hg (35-45); PO2 70 mm Hg (80-100); SITE RR; TOTAL RESP RATE 18 resp/min
[2016-10-23 12:41] VITALS: BP 176/79
[2016-10-23 13:24] LABS: GLUCOSE 468 mg/dL (70-99)
[2016-10-23 19:15] VITALS: BP 177/74
[2016-10-23 23:15] VITALS: BP 174/77
[2016-10-24 03:20] VITALS: BP 165/72
[2016-10-24 06:21] LABS: HEMATOCRIT 30.9 % (36.0-46.0); MCH 32.4 PG (29.0-34.0); MCHC 33.3 G/DL (30.0-36.0); MCV 97.2 FL (83-99); MEAN PLAT.VOLUME 10.5 uM^3 (9.5-12.4); PLATELET COUNT 216 K/uL (156-360); RBC DIS.WIDTH-CV 13.7 % (11.8-14.6); RBC DIS.WIDTH-SD 49.1 % (39-53); RED BLOOD COUNT 3.18 M/uL (3.80-5.20); WHITE BLOOD COUNT 13.7 K/uL (4.1-10.2)
[2016-10-24 06:54] LABS: ANION GAP 7 MEQ/L (2-14); CHLORIDE 101 MEQ/L (99-109); GFR ESTIMATE (CALCULATED) 51 mL/min/; GLUCOSE 251 mg/dL (70-99); MAGNESIUM 2.5 mg/dl (1.3-2.7); SAMPLE HEMOLYSIS CHECK 0; SAMPLE ICTERIC CHECK 0; SAMPLE LIPEMIA CHECK 0; UREA NITROGEN (BUN) 59 mg/dL (9-23)
[2016-10-24 06:56] LABS: SODIUM 142 MEQ/L (136-147)
[2016-10-24 08:23] LABS: BASE EXCESS 11.8 mEq/L (-3 to +3); BICARBONATE 37.1 mEq/L (22-26); CARBOXY HGB 1.6 % (0-5); METHEMOGLOBIN 1.8 % (0-1.5); PO2 77 mm Hg (80-100)
[2016-10-24 08:24] LABS: COMMENTS - BLOOD GASES A+C+; DEVICE HFLNC; O2 FLOW 10 L/MIN; PCO2 51 mm Hg (35-45); SITE RR; TOTAL RESP RATE 19 resp/min; pH 7.47 (7.35-7.45)
[2016-10-24 08:35] VITALS: BP 136/54
[2016-10-24 12:03] LABS: POINT-OF-CARE USER ID NUTSLF44
[2016-10-24 12:25] VITALS: BP 132/56
[2016-10-24 15:44] VITALS: BP 142/66
[2016-10-24 17:44] LABS: POINT-OF-CARE METER ID UU13113698; POINT-OF-CARE USER ID NUTSLF44
[2016-10-24 20:30] VITALS: BP 129/74
[2016-10-24 22:40] LABS: POINT-OF-CARE METER ID UU13113781; POINT-OF-CARE USER ID AHSUCEG
[2016-10-24 23:44] VITALS: BP 139/75
[2016-10-24 23:48] LABS: POINT-OF-CARE USER ID NUTSLF44
[2016-10-24 23:48] LABS: POINT-OF-CARE USER ID NUTSLF44
[2016-10-24 23:48] LABS: POINT-OF-CARE USER ID NUTSLF44
[2016-10-25 03:30] VITALS: BP 130/77
[2016-10-25 05:49] LABS: HEMATOCRIT 31.3 % (36.0-46.0); MCH 31.2 PG (29.0-34.0); MCHC 31.9 G/DL (30.0-36.0); MCV 97.5 FL (83-99); MEAN PLAT.VOLUME 10.4 uM^3 (9.5-12.4); PLATELET COUNT 211 K/uL (156-360); RBC DIS.WIDTH-CV 13.2 % (11.8-14.6); RBC DIS.WIDTH-SD 47.2 % (39-53); RED BLOOD COUNT 3.21 M/uL (3.80-5.20); WHITE BLOOD COUNT 12.9 K/uL (4.1-10.2)
[2016-10-25 06:16] LABS: GFR ESTIMATE (CALCULATED) > 59 mL/min/
[2016-10-25 08:24] VITALS: BP 122/84
[2016-10-25 08:47] LABS: POINT-OF-CARE USER ID ENVKC36
[2016-10-25 11:18] VITALS: BP 110/60
[2016-10-25 12:15] LABS: POINT-OF-CARE USER ID ENVKC36
[2016-10-25 17:23] VITALS: BP 163/68
[2016-10-25 19:30] VITALS: BP 169/70
[2016-10-26 00:10] VITALS: BP 162/70
[2016-10-26 04:05] VITALS: BP 170/70
[2016-10-26 05:47] LABS: HEMATOCRIT 32.9 % (36.0-46.0); MCH 32.7 PG (29.0-34.0); MCHC 34.7 G/DL (30.0-36.0); MCV 94.3 FL (83-99); MEAN PLAT.VOLUME 11.2 uM^3 (9.5-12.4); NRBC (%) 0.2 /100 WBC (0-0); PLATELET COUNT 223 K/uL (156-360); RBC DIS.WIDTH-CV 12.9 % (11.8-14.6); RBC DIS.WIDTH-SD 44.5 % (39-53); RED BLOOD COUNT 3.49 M/uL (3.80-5.20); WHITE BLOOD COUNT 15.4 K/uL (4.1-10.2)
[2016-10-26 06:11] LABS: ANION GAP 11 MEQ/L (2-14); CHLORIDE 94 MEQ/L (99-109); GFR ESTIMATE (CALCULATED) > 59 mL/min/; GLUCOSE 154 mg/dL (70-99); POTASSIUM 3.2 MEQ/L (3.7-5.4); SAMPLE HEMOLYSIS CHECK 0; SAMPLE ICTERIC CHECK 0; SAMPLE LIPEMIA CHECK 0; SODIUM 145 MEQ/L (136-147); UREA NITROGEN (BUN) 42 mg/dL (9-23)
[2016-10-26 10:02] VITALS: BP 169/78
[2016-10-26 11:15] VITALS: BP 184/76
[2016-10-26 16:16] VITALS: BP 162/70
[2016-10-26 19:00] VITALS: BP 151/69
[2016-10-27] VITALS: BP 162/73
[2016-10-27 04:00] VITALS: BP 168/84
[2016-10-27 05:24] LABS: HEMATOCRIT 35.8 % (36.0-46.0); MCH 31.3 PG (29.0-34.0); MEAN PLAT.VOLUME 10.6 uM^3 (9.5-12.4); PLATELET COUNT 231 K/uL (156-360); RBC DIS.WIDTH-CV 12.9 % (11.8-14.6); RBC DIS.WIDTH-SD 44.7 % (39-53); RED BLOOD COUNT 3.77 M/uL (3.80-5.20); WHITE BLOOD COUNT 21.5 K/uL (4.1-10.2)
[2016-10-27 08:08] LABS: POINT-OF-CARE METER ID UU13113698
[2016-10-27 08:30] VITALS: BP 152/62
[2016-10-27 11:59] LABS: ANION GAP 10 MEQ/L (2-14); CHLORIDE 91 MEQ/L (99-109); GFR ESTIMATE (CALCULATED) > 59 mL/min/; GLUCOSE 198 mg/dL (70-99); POTASSIUM 3.7 MEQ/L (3.7-5.4); SAMPLE HEMOLYSIS CHECK 0; SAMPLE ICTERIC CHECK 0; SAMPLE LIPEMIA CHECK 0; SODIUM 138 MEQ/L (136-147); UREA NITROGEN (BUN) 29 mg/dL (9-23); VANCOMYCIN, TROUGH 12.9 MCG/ML (10-20)
[2016-10-27 12:00] LABS: POINT-OF-CARE METER ID UU13113698
[2016-10-27 13:30] VITALS: BP 138/68
[2016-10-27 16:43] LABS: POINT-OF-CARE METER ID UU13113698
[2016-10-27 17:50] VITALS: BP 126/60
[2016-10-27 19:45] VITALS: BP 138/56
[2016-10-27 20:48] LABS: POINT-OF-CARE METER ID UU14174216
[2016-10-28 00:07] VITALS: BP 122/68
[2016-10-28 03:48] VITALS: BP 156/68
[2016-10-28 06:19] LABS: ANION GAP ND MEQ/L (2-14); CARBON DIOXIDE (BICARBONATE) > 40.0 MEQ/L (20-31); CHLORIDE 92 MEQ/L (99-109); GFR ESTIMATE (CALCULATED) > 59 mL/min/; GLUCOSE 146 mg/dL (70-99); POTASSIUM 4.7 MEQ/L (3.7-5.4); SAMPLE HEMOLYSIS CHECK 1; SAMPLE ICTERIC CHECK 0; SAMPLE LIPEMIA CHECK 0; SODIUM 136 MEQ/L (136-147); UREA NITROGEN (BUN) 23 mg/dL (9-23)
[2016-10-28 08:15] LABS: POINT-OF-CARE METER ID UU14174216; POINT-OF-CARE USER ID ENVKC36
[2016-10-28 09:00] VITALS: BP 140/64
[2016-10-28 09:45] LABS: HEMATOCRIT 37.1 % (36.0-46.0); MCH 30.7 PG (29.0-34.0); MCHC 31.8 G/DL (30.0-36.0); MCV 96.6 FL (83-99); MEAN PLAT.VOLUME 10.7 uM^3 (9.5-12.4); PLATELET COUNT 189 K/uL (156-360); RBC DIS.WIDTH-CV 13.2 % (11.8-14.6); RBC DIS.WIDTH-SD 46.9 % (39-53); RED BLOOD COUNT 3.84 M/uL (3.80-5.20); WHITE BLOOD COUNT 17.5 K/uL (4.1-10.2)
[2016-10-28 11:57] LABS: POINT-OF-CARE METER ID UU14174216; POINT-OF-CARE USER ID ENVKC36
[2016-10-28 12:36] VITALS: BP 158/70
[2016-10-28 15:51] VITALS: BP 145/66
[2016-10-28 16:29] LABS: POINT-OF-CARE METER ID UU14174216; POINT-OF-CARE USER ID ENVKC36
[2016-10-28 20:15] VITALS: BP 120/60
[2016-10-28 20:35] LABS: POINT-OF-CARE METER ID UU14174216; POINT-OF-CARE USER ID ENVMNS
[2016-10-29 00:45] VITALS: BP 152/65
[2016-10-29 05:00] VITALS: BP 189/80
[2016-10-29 05:37] LABS: HEMATOCRIT 29.7 % (36.0-46.0); MCH 32.1 PG (29.0-34.0); MCHC 33.3 G/DL (30.0-36.0); MCV 96.4 FL (83-99); MEAN PLAT.VOLUME 11.5 uM^3 (9.5-12.4); PLATELET COUNT 164 K/uL (156-360); RBC DIS.WIDTH-CV 13.4 % (11.8-14.6); RBC DIS.WIDTH-SD 47.4 % (39-53); RED BLOOD COUNT 3.08 M/uL (3.80-5.20); WHITE BLOOD COUNT 21.7 K/uL (4.1-10.2)
[2016-10-29 07:00] VITALS: BP 139/70
[2016-10-29 07:55] LABS: POINT-OF-CARE METER ID UU13113781
[2016-10-29 09:50] LABS: ANION GAP 4 MEQ/L (2-14); CHLORIDE 92 MEQ/L (99-109); GFR ESTIMATE (CALCULATED) > 59 mL/min/; POTASSIUM 4.8 MEQ/L (3.7-5.4); SAMPLE HEMOLYSIS CHECK 0; SAMPLE ICTERIC CHECK 0; SAMPLE LIPEMIA CHECK 0; SODIUM 135 MEQ/L (136-147); UREA NITROGEN (BUN) 21 mg/dL (9-23)
[2016-10-29 09:55] LABS: GLUCOSE 104 mg/dL (70-99)
[2016-10-29 11:31] LABS: POINT-OF-CARE METER ID UU13113781
[2016-10-29 12:34] VITALS: BP 118/56
[2016-10-29 17:05] VITALS: BP 120/64
[2016-10-29 21:10] VITALS: BP 137/62
[2016-10-29 21:23] LABS: POINT-OF-CARE USER ID ENVMNS
[2016-10-30 00:53] VITALS: BP 180/81
[2016-10-30 05:06] VITALS: BP 152/67
[2016-10-30 07:17] LABS: GFR ESTIMATE (CALCULATED) > 59 mL/min/
[2016-10-30 07:44] LABS: POINT-OF-CARE METER ID UU14174216
[2016-10-30 08:29] VITALS: BP 132/64
[2016-10-30 08:48] LABS: MCH 31.1 PG (29.0-34.0); MCHC 32.2 G/DL (30.0-36.0); MCV 96.7 FL (83-99); MEAN PLAT.VOLUME 11.7 uM^3 (9.5-12.4); PLATELET COUNT 180 K/uL (156-360); RBC DIS.WIDTH-CV 13.5 % (11.8-14.6); RBC DIS.WIDTH-SD 48.4 % (39-53); RED BLOOD COUNT 3.31 M/uL (3.80-5.20); WHITE BLOOD COUNT 17.8 K/uL (4.1-10.2)
[2016-10-30 08:49] LABS: ANION GAP 5 MEQ/L (2-14); CHLORIDE 91 MEQ/L (99-109); GLUCOSE 165 mg/dL (70-99); POTASSIUM 5.4 MEQ/L (3.7-5.4); SODIUM 133 MEQ/L (136-147); UREA NITROGEN (BUN) 28 mg/dL (9-23)
[2016-10-30 11:20] LABS: POINT-OF-CARE METER ID UU14174216
[2016-10-30 13:12] VITALS: BP 113/76
[2016-10-30 16:17] VITALS: BP 147/65
[2016-10-30 16:42] LABS: POINT-OF-CARE METER ID UU14174216
[2016-10-30 18:55] LABS: ANION GAP 7 MEQ/L (2-14); CHLORIDE 90 MEQ/L (99-109); GFR ESTIMATE (CALCULATED) > 59 mL/min/; GLUCOSE 228 mg/dL (70-99); SAMPLE HEMOLYSIS CHECK 0; SAMPLE ICTERIC CHECK 0; SAMPLE LIPEMIA CHECK 0; SODIUM 129 MEQ/L (136-147); UREA NITROGEN (BUN) 29 mg/dL (9-23)
[2016-10-30 18:56] LABS: POTASSIUM 4.3 MEQ/L (3.7-5.4)
[2016-10-30 20:24] VITALS: BP 137/64
[2016-10-31 00:04] VITALS: BP 150/70
[2016-10-31 05:33] VITALS: BP 168/72
[2016-10-31 07:48] VITALS: BP 161/69
[2016-10-31 07:49] LABS: POINT-OF-CARE USER ID ENVKC36
[2016-10-31 08:27] LABS: HEMATOCRIT 32.3 % (36.0-46.0); MCH 31.3 PG (29.0-34.0); MCHC 33.1 G/DL (30.0-36.0); MCV 94.4 FL (83-99); MEAN PLAT.VOLUME 11.4 uM^3 (9.5-12.4); PLATELET COUNT 205 K/uL (156-360); RBC DIS.WIDTH-CV 13.2 % (11.8-14.6); RBC DIS.WIDTH-SD 45.4 % (39-53); RED BLOOD COUNT 3.42 M/uL (3.80-5.20); WHITE BLOOD COUNT 15.7 K/uL (4.1-10.2)
[2016-10-31 09:00] LABS: ANION GAP 6 MEQ/L (2-14); CHLORIDE 88 MEQ/L (99-109); GFR ESTIMATE (CALCULATED) > 59 mL/min/; GLUCOSE 218 mg/dL (70-99); POTASSIUM 4.3 MEQ/L (3.7-5.4); SAMPLE HEMOLYSIS CHECK 0; SAMPLE ICTERIC CHECK 0; SAMPLE LIPEMIA CHECK 0; SODIUM 132 MEQ/L (136-147); UREA NITROGEN (BUN) 30 mg/dL (9-23)
[2016-10-31 11:07] VITALS: BP 138/62
[2016-10-31 11:40] LABS: POINT-OF-CARE METER ID UU13113698
[2016-10-31 16:19] LABS: POINT-OF-CARE METER ID UU13113698
[2016-10-31 20:30] VITALS: BP 133/63
[2016-11-01 00:30] VITALS: BP 128/60
[2016-11-01 02:45] VITALS: BP 131/59
[2016-11-01 06:10] LABS: HEMATOCRIT 27.4 % (36.0-46.0); MCH 31.5 PG (29.0-34.0); MCHC 33.2 G/DL (30.0-36.0); MCV 94.8 FL (83-99); MEAN PLAT.VOLUME 11.4 uM^3 (9.5-12.4); PLATELET COUNT 184 K/uL (156-360); RBC DIS.WIDTH-CV 13.4 % (11.8-14.6); RBC DIS.WIDTH-SD 46.2 % (39-53); RED BLOOD COUNT 2.89 M/uL (3.80-5.20); WHITE BLOOD COUNT 23.3 K/uL (4.1-10.2)
[2016-11-01 07:53] VITALS: BP 133/48
[2016-11-01 08:38] LABS: POINT-OF-CARE METER ID UU13113781
[2016-11-01 09:25] LABS: ANION GAP 6 MEQ/L (2-14); CHLORIDE 93 MEQ/L (99-109); GFR ESTIMATE (CALCULATED) > 59 mL/min/; GLUCOSE 97 mg/dL (70-99); POTASSIUM 3.7 MEQ/L (3.7-5.4); SAMPLE HEMOLYSIS CHECK 0; SAMPLE ICTERIC CHECK 0; SAMPLE LIPEMIA CHECK 0; SODIUM 136 MEQ/L (136-147); UREA NITROGEN (BUN) 29 mg/dL (9-23)
[2016-11-01 12:10] LABS: POINT-OF-CARE METER ID UU13113781
[2016-11-01 15:50] VITALS: BP 51/53
[2016-11-01 16:12] LABS: POINT-OF-CARE METER ID UU13113781
[2016-11-01 20:00] VITALS: BP 112/42
[2016-11-01 21:28] LABS: POINT-OF-CARE METER ID UU13113698
[2016-11-02 00:22] VITALS: BP 115/60
[2016-11-02 03:45] VITALS: BP 122/67
[2016-11-02 05:40] LABS: HEMATOCRIT 26.5 % (36.0-46.0); MCH 32.1 PG (29.0-34.0); MCHC 33.6 G/DL (30.0-36.0); MCV 95.7 FL (83-99); MEAN PLAT.VOLUME 11.6 uM^3 (9.5-12.4); PLATELET COUNT 162 K/uL (156-360); RBC DIS.WIDTH-CV 13.8 % (11.8-14.6); RBC DIS.WIDTH-SD 47.8 % (39-53); RED BLOOD COUNT 2.77 M/uL (3.80-5.20); WHITE BLOOD COUNT 19.1 K/uL (4.1-10.2)
[2016-11-02 08:24] LABS: POINT-OF-CARE METER ID UU13113698
[2016-11-02 09:14] VITALS: BP 133/53
[2016-11-02 09:39] LABS: POINT-OF-CARE METER ID UU13113698
[2016-11-02 09:49] LABS: BASE EXCESS 11.5 mEq/L (-3 to +3); BICARBONATE 35.9 mEq/L (22-26); CARBOXY HGB 2.5 % (0-5); METHEMOGLOBIN 1.7 % (0-1.5)
[2016-11-02 09:50] LABS: COMMENTS - BLOOD GASES A+C+; CONTINUOUS POS AIRWAY PRESSURE 15 cm H2O; DEVICE CPAP; O2 FLOW 1 L/MIN; PCO2 46 mm Hg (35-45); PO2 58 mm Hg (80-100); SITE RR; TOTAL RESP RATE 24 resp/min
[2016-11-02 12:18] LABS: POINT-OF-CARE METER ID UU13113803
[2016-11-02 12:31] VITALS: BP 126/41
[2016-11-02 16:29] VITALS: BP 143/38
[2016-11-02 17:07] LABS: POINT-OF-CARE METER ID UU13113781
[2016-11-02 19:09] VITALS: BP 127/41
[2016-11-03] VITALS (7 sets, daily range): BP systolic 112–160; BP diastolic 44–112
[2016-11-03 03:19] LABS: POINT-OF-CARE METER ID UU13113698
[2016-11-03 05:39] LABS: HEMATOCRIT 27.9 % (36.0-46.0); MCH 31.3 PG (29.0-34.0); MCV 94.9 FL (83-99); MEAN PLAT.VOLUME 11.4 uM^3 (9.5-12.4); PLATELET COUNT 149 K/uL (156-360); RBC DIS.WIDTH-SD 48.6 % (39-53); RED BLOOD COUNT 2.94 M/uL (3.80-5.20)
[2016-11-03 08:23] LABS: POINT-OF-CARE METER ID UU13113781
[2016-11-03 11:34] LABS: POINT-OF-CARE METER ID UU13113781
[2016-11-04 04:40] VITALS: BP 130/59
[2016-11-04 08:00] VITALS: BP 148/71
[2016-11-04 12:00] VITALS: BP 125/58
[2016-11-04 15:00] VITALS: BP 132/58
[2016-11-04] MEDS ORDERED: LINEZOLID600 MG PO (16:27)
[2016-11-04] MEDS ORDERED: HEPARIN SO5000 UNIT4 SC (16:51)
[2016-11-04] MEDS ORDERED: MORPHINE SULFAT15 M1 PO (16:53)
[2016-11-04] MEDS ORDERED: NOVOLOG PE100 UNITS/ SC (16:56)
[2016-11-04] MEDS ORDERED: PREDNISONE5 MG PO (16:57)
[2016-11-04 17:00] VITALS: BP 132/58
[2016-11-04] MEDS ORDERED: VANCOMYCIN HCL1 GM IV (17:00)
[2016-11-04 19:45] VITALS: BP 139/64
[2016-11-05 14:47] LABS: POINT-OF-CARE METER ID UU14174225
[2016-11-05 14:47] LABS: POINT-OF-CARE METER ID UU14174225
[2016-11-05 14:48] LABS: POINT-OF-CARE METER ID UU13113717
[2016-11-05 14:48] LABS: POINT-OF-CARE METER ID UU14174225
[2016-11-08 11:39] LABS: POINT-OF-CARE METER ID UU13113717
== END 2016-11-04 23:26 | disposition short-term general hospital (02) | DRG 871 ==
LOC: EME 17:14 → 4EAST 22:29 → EDOF 22:29 → 4EAST 10-21 14:20 → ENRESERV 11-03 19:41 → 5SOUTH 11-03 21:36
PROVIDERS: Emergency Medicine; Family Medicine; Hospitalist; Internal Medicine; Internal Medicine Cardiovascular Disease; Internal Medicine Pulmonary Disease; Nurse Practitioner Family; Physician Assistant
PROC: 5A09357 Assistance with Respiratory Ventilation, Less than 24 Consecutive Hours, Continuous Positive Airway Pressure (ICD-10-PCS; principal; 2016-10-23)
DX: A41.02 Sepsis due to Methicillin resistant Staphylococcus aureus (principal); J85.3 Abscess of mediastinum; I21.4 Non-ST elevation (NSTEMI) myocardial infarction; J96.02 Acute respiratory failure with hypercapnia; J96.01 Acute respiratory failure with hypoxia; J44.1 Chronic obstructive pulmonary disease with (acute) exacerbation; I50.33 Acute on chronic diastolic (congestive) heart failure; Z68.41 Body mass index [BMI] 40.0-44.9, adult; E11.65 Type 2 diabetes mellitus with hyperglycemia; I13.0 Hypertensive heart and chronic kidney disease with heart failure and stage 1 through stage 4 chronic kidney disease, or unspecified chronic kidney disease; E66.01 Morbid (severe) obesity due to excess calories; E27.8 Other specified disorders of adrenal gland; J18.9 Pneumonia, unspecified organism; J44.0 Chronic obstructive pulmonary disease with (acute) lower respiratory infection; K56.7 Ileus, unspecified; I25.5 Ischemic cardiomyopathy; E11.22 Type 2 diabetes mellitus with diabetic chronic kidney disease; F11.20 Opioid dependence, uncomplicated; I10 Essential (primary) hypertension; E03.9 Hypothyroidism, unspecified; G47.33 Obstructive sleep apnea (adult) (pediatric); N30.00 Acute cystitis without hematuria; R65.20 Severe sepsis without septic shock; L03.116 Cellulitis of left lower limb; Y95 Nosocomial condition; E78.5 Hyperlipidemia, unspecified; G25.81 Restless legs syndrome; M14.679 Charcot's joint, unspecified ankle and foot; N18.9 Chronic kidney disease, unspecified; I25.10 Atherosclerotic heart disease of native coronary artery without angina pectoris; J98.11 Atelectasis; B96.20 Unspecified Escherichia coli [E. coli] as the cause of diseases classified elsewhere; M19.90 Unspecified osteoarthritis, unspecified site; I87.8 Other specified disorders of veins; M54.9 Dorsalgia, unspecified; M48.06 Spinal stenosis, lumbar region; M54.16 Radiculopathy, lumbar region; J20.9 Acute bronchitis, unspecified; M86.9 Osteomyelitis, unspecified; I35.0 Nonrheumatic aortic (valve) stenosis; R59.0 Localized enlarged lymph nodes; I87.2 Venous insufficiency (chronic) (peripheral); K80.20 Calculus of gallbladder without cholecystitis without obstruction; I24.9 Acute ischemic heart disease, unspecified; M60.88 Other myositis, other site; G89.4 Chronic pain syndrome; E87.6 Hypokalemia; I25.2 Old myocardial infarction; Z95.5 Presence of coronary angioplasty implant and graft; Z87.891 Personal history of nicotine dependence; Z79.82 Long term (current) use of aspirin; Z79.4 Long term (current) use of insulin; Z86.14 Personal history of Methicillin resistant Staphylococcus aureus infection; Z95.1 Presence of aortocoronary bypass graft; Z90.710 Acquired absence of both cervix and uterus
CPT/HCPCS: 36600; 71010; 71020; 71260; 71275; 72158; 73522; 74022; 74176; 80048; 80048 91; 80053; 80202; 81003; 82565; 82803; 82948; 83605; 83690; 83735; 83880; 84484; 84999; 85025; 85027; 85610; 85730; 87040; 87070; 87077; 87086; 87147; 87186; 87205; 87801; 93005; 93306; 94010; 94640; 94640 76; 94660; 94760; 94799; 97530 GO; 99202; 99281; 99284; J0456; J0696; J1644; J1815; J1940; J2060; J2270; J2405; J2543; J2920; J2930; J3370; J7042; J7050; J7512